=== PATIENT | male | born 1995 | race Caucasian/White ===

== ENCOUNTER 2021-02-21 17:08 | Emergency (ER) | payer OTHER ==
[~2021-02-21] VITALS: Ht 175.3 cm; Wt 63.6 kg
[2021-02-21] MEDS ORDERED: DiphenhydrAMINE HCL 50 MG/ML VIAL IVP ONE (21:30)
[2021-02-21] MEDS ORDERED: SODIUM CHLORIDE 0.9% 1,000 ML IV ONE ×2 (21:30→23:30)
[2021-02-21] MEDS ORDERED: ACETAMINOPHEN 500 MG TABLET PO ONE (21:30)
[2021-02-21] MEDS ORDERED: MORPHINE SULFATE 2 MG/ML SYRINGE IVP ONE (21:30)
[2021-02-21] MEDS ORDERED: METOCLOPRAMIDE HCL 5 MG/ML 2 ML VIAL IVP ONE (21:30)
[2021-02-21 22:11] LABS: BASOPHILS % (AUTO) 0.2 % (0.0-2.0); EOSINOPHILS % (AUTO) 0 % (1.0-6.0); HEMATOCRIT 40.5 % (41-53); HEMOGLOBIN 13.7 g/dL (13.5-17.5); LYMPHOCYTES # (AUTO) 1.1 K/uL (1.0-4.8); LYMPHOCYTES % (AUTO) 5.7 % (22.0-44.0); MEAN CORPUSCULAR HEMOGLOBIN 30.5 pg (26.0-34.0); MEAN CORPUSCULAR HGB CONC 33.8 G/dL (31.0-37.0); MEAN CORPUSCULAR VOLUME 90 fL (80-100); MONOCYTES # (AUTO) 1.2 K/uL (0.1-1.0); MONOCYTES % (AUTO) 6.7 % (2.0-9.0); NEUTROPHILS # (AUTO) 16.2 K/uL (1.8-7.7); PLATELET COUNT (AUTO) 308 K/uL (150-450); RED CELL DISTRIBUTION WIDTH 13.3 % (11.5-14.5)
[2021-02-21 22:14] LABS: NEUTROPHILS % (AUTO) 87.4 % (40.0-70.0)
[2021-02-21 22:22] LABS: ANION GAP 8 mmol/L (8-16); CALCIUM, TOTAL 9.5 mg/dL (8.8-10.5); CARBON DIOXIDE 30 mmol/L (22-29); CHLORIDE 98 mmol/L (98-107); GLOMERULAR FILTR. RATE CALC > 60 mL/min (>60); GLUCOSE,RANDOM 128 mg/dL (70-110); POTASSIUM 3.7 mmol/L (3.5-5.1); SODIUM SERUM 136 mmol/L (136-145); UREA NITROGEN, BLOOD 7 mg/dL (7-18)
[2021-02-21 22:29] LABS: ALANINE AMINOTRANSFERASE 38 U/L (12-78); ALBUMIN 3.7 g/dL (3.4-5.0); ALKALINE PHOSPHATASE 108 U/L (46-116); ASPARTATE AMINOTRANSFERASE 18 U/L (15-37); BILIRUBIN,TOTAL 0.7 mg/dL (0.1-1.0); CREATINE KINASE, TOTAL ONLY 66 U/L (39-308); TOTAL PROTEIN, SERUM 8.9 g/dL (6.4-8.2)
[2021-02-21 22:30] LABS: LACTIC ACID 1.1 mmol/L (0.4-2.0)
[2021-02-21 22:38] LABS: B-TYPE NATRIURETIC PEPTIDE < 5 pg/mL (0-100)
[2021-02-22] MEDS ORDERED: IOHEXOL 350 MG/ML 100 ML VIAL ONE (00:21)
[2021-02-22] MEDS ORDERED: SODIUM CHLORIDE 0.9% 100 ML ONE (00:21)
[2021-02-22 01:00] LABS: COVID AG,FIA SOURCE NASOPHARYNGEAL
[2021-02-22 01:23] LABS: INFLUENZA TYPE A NEGATIVE FOR TYPE A (NEGATIVE); INFLUENZA TYPE B NEGATIVE FOR TYPE B (NEGATIVE)
[2021-02-22] MEDS ORDERED: MORPHINE SULFATE 4 MG/ML SYRINGE IVP ONE (02:30)
[2021-02-22 03:54] LABS: APPEARANCE,CSF CLEAR (CLEAR); COLOR,CSF COLORLESS (COLORLESS); CSF TUBE NUMBER 1
[2021-02-22 03:55] LABS: APPEARANCE2,CSF CLEAR (CLEAR); COLOR2,CSF COLORLESS (COLORLESS); CSF 2ND TUBE NUMBER 4
[2021-02-22 03:56] LABS: GLUCOSE, CSF 73 mg/dL (50-80); TOTAL PROTEIN, CSF 31 mg/dL (15-45)
[2021-02-22 04:09] LABS: LYMPHOCYTES1,CSF 100 %; LYMPHOCYTES2,CSF 100 %; MONOCYTES1,CSF 0 %; MONOCYTES2,CSF 0 %; NEUTROPHILS1,CSF 0 %; NEUTROPHILS2,CSF 0 %; OTHER CELLS,CSF 2ND 0
[2021-02-22 04:14] VITALS: BP 117/67
[2021-02-22 04:36] LABS: APPEARANCE,URINE CLEAR (CLEAR); BILIRUBIN,URINE NEGATIVE (NEGATIVE); GLUCOSE, URINE (UA) NEGATIVE (NEGATIVE); KETONES,URINE NEGATIVE (NEGATIVE); LEUKOCYTE ESTERASE ,URINE NEGATIVE (NEGATIVE); NITRATE,URINE NEGATIVE (NEGATIVE); OCCULT BLOOD,URINE NEGATIVE (NEGATIVE); PH,URINE 5.5 (5.0-8.0); PROTEIN,URINE NEGATIVE (NEGATIVE); UROBILINOGEN,URINE 0.2 mg/dL (<=1.0)
[2021-02-22 05:35] LABS: AMPHET/METH SCREEN,URINE NEGATIVE (NEGATIVE); BARBITURATE SCREEN, URINE NEGATIVE (NEGATIVE); BENZODIAZEPINES SCREEN,URINE NEGATIVE (NEGATIVE); CANNABINOID SCREEN,URINE NEGATIVE (NEGATIVE); COCAINE SCREEN,URINE NEGATIVE (NEGATIVE); METHADONE SCREEN, URINE NEGATIVE (NEGATIVE); OPIATE SCREEN,URINE POSITIVE (NEGATIVE)
[2021-02-22 05:36] LABS: PHENCYCLIDINE SCREEN,URINE NEGATIVE (NEGATIVE)
== END 2021-02-22 05:25 | disposition home or self-care (01) ==
LOC: EMS 17:16
DX: R51.9 Headache, unspecified (principal); D72.829 Elevated white blood cell count, unspecified; Z20.822 Contact with and (suspected) exposure to COVID-19
CPT/HCPCS: 36415; 62270; 70450; 70491; 71045; 80053; 80307; 81003; 82550; 82945; 83605; 83880; 84157; 84484; 85025; 87040; 87070; 87205; 87426; 87804; 89051; 93005; 96361 ×2; 96374; 96375; 96376; 99285; J1200; J2270 ×2; J2765; J7030; J7050; Q9967